=== PATIENT | male | born 1995 | race Two or more races ===

== ENCOUNTER 2021-04-10 08:35 | Emergency (ER) | payer SELFPAY ==
[~2021-04-10] VITALS: Ht 167.6 cm; Wt 81.5 kg
[2021-04-10 08:45] VITALS: BP 148/91
[2021-04-10] MEDS ORDERED: LORazepam 2 mg/ml vial IV ONE (08:55)
[2021-04-10] MEDS ORDERED: ondansetron/PF 4mg/2ml inj IV ONE (08:55)
[2021-04-10] MEDS ORDERED: normal saline 1000ML IV soln IVB ONE (08:55)
--- NOTE | 2021-04-10 09:03 | NUR ---
POISON CONTROLED CONTACTED THERE ARE NO CONCERNS OF INTERNAL BURNING FROM THE LYSOS. STATES THAT ABD DISCOMFORT WITH POSSIBLE N/V/DIARRHEA. SHOULD VOMITING AND DIARRHEA BE PERSISTANT CHECK ELECTROLITES. PROVIDER NOTIFIED RANJIT NOTIFIED AND REPORT MADE, OFFICER TO CALL Addendum: 04/10/21 at 0921 by SHILPA MONIQUE CALLED FOR INFORMATION; CASE# [id number]
[2021-04-10] MEDS ORDERED: famotidine/PF 10 mg/ml inj IV ONE (09:05)
[2021-04-10 09:09] LABS: BASOPHILS # (AUTO) 0.1 X10'3 (0-0.2); BASOPHILS % (AUTO) 0.8 % (0-1); EOSINOPHILS # (AUTO) 0.1 X10'3 (0-0.9); HEMATOCRIT 42.9 % (42.0-52.0); HEMOGLOBIN 14.8 g/dl (14.0-17.9); LYMPHOCYTES # (AUTO) 1.7 X10'3 (1.1-4.8); LYMPHOCYTES % (AUTO) 24.6 % (21-51); MEAN CORPUSCULAR HEMOGLOBIN 29.8 PG (27.0-31.0); MEAN CORPUSCULAR HGB CONC 34.6 g/dL (33.0-36.5); MEAN CORPUSCULAR VOLUME 86.1 FL (78-98); MEAN PLATELET VOLUME 9.6 FL (7.4-10.4); MONOCYTES # (AUTO) 0.6 X10'3 (0-0.9); MONOCYTES % (AUTO) 8.5 % (2-12); NEUTROPHILS # (AUTO) 4.4 X10'3 (1.8-7.7); NEUTROPHILS % (AUTO) 65.1 % (42-75); PLATELET COUNT 235 X10'3 (140-440); RED BLOOD COUNT 4.98 X10'6 (4.70-6.10); RED CELL DISTRIBUTION WIDTH 13.5 % (11.5-14.5); WHITE BLOOD COUNT 6.8 X10'3 (4.5-11.0)
[2021-04-10 09:26] LABS: ALANINE AMINOTRANSFERASE 39 U/L (12-78); ALKALINE PHOSPHATASE 119 IU/L (46-116); ANION GAP 9 (8-16); ASPARTATE AMINO TRANSFERASE 30 U/L (10-37); BILIRUBIN,TOTAL 0.3 MG/DL (0.1-1.0); BLOOD UREA NITROGEN 10 MG/DL (7-18); BUN/CREATININE RATIO 12.7 (5.4-32.0); CALCIUM 9.2 MG/DL (8.5-10.1); CHLORIDE 106 MMOL/L (99-107); CREATININE 0.79 MG/DL (0.60-1.10); GLUCOSE 101 MG/DL (70-104); LIPASE 87 U/L (73-393); POTASSIUM 4.1 MMOL/L (3.5-5.1); SODIUM 144 MMOL/L (135-145); TOTAL CARBON DIOXIDE 28.6 MMOL/L (24-32); TOTAL PROTEIN 7.9 G/DL (6.4-8.2); eGFR > 90 ML/MIN
[2021-04-10 10:23] LABS: CLARITY,URINE CLEAR (Clear); COLOR,URINE YELLOW (Yellow); GLUCOSE, URINE NEGATIVE (Neg); KETONES,URINE NEGATIVE (Neg); LEUKOCYTE ESTERASE ,URINE NEGATIVE (Neg); NITRITES, URINE NEGATIVE (Neg); OCCULT BLOOD,URINE NEGATIVE (Neg); PH,URINE 7.5 (4.8-8.0); PROTEIN,URINE NEGATIVE (Neg); UA COLLECTION TYPE CLN CATCH MIDSTREAM; UROBILINOGEN,URINE 0.2 E.U/dL (0.2-1.0)
[2021-04-10] MEDS ORDERED: sucralfate 1 gm tablet PO ONE (12:05)
[2021-04-10] MEDS ORDERED: LIDOcaine Viscous 15ml cup MM ONE (12:05)
[2021-04-10] MEDS ORDERED: mag hydrox/Alum hydrox/simeth 30ml oral suspension PO ONE (12:05)
[2021-04-10] MEDS ORDERED: ONDA4TAB6 PO (12:33)
== END 2021-04-10 13:01 | disposition home or self-care (01) ==
LOC: ER 08:35
DX: R07.89 Other chest pain (principal); T54.91XA Toxic effect of unspecified corrosive substance, accidental (unintentional), initial encounter; K29.70 Gastritis, unspecified, without bleeding; R11.2 Nausea with vomiting, unspecified; F41.9 Anxiety disorder, unspecified; R10.10 Upper abdominal pain, unspecified; Y92.89 Other specified places as the place of occurrence of the external cause
CPT/HCPCS: 36415; 71045; 80053; 81003; 83690; 85025; 93005; 96361; 96374; 96375; 99285; J2060; J2405; J3490; J7030